=== PATIENT | female | born 1985 | race African-American/Black ===

== ENCOUNTER 2017-01-16 17:20 | Emergency (ER) | payer MEDICAID, OTHER ==
[~2017-01-16] VITALS: Ht 165.1 cm; Wt 132.3 kg
[~2017-01-16 17:20] MED LIST: AMOX875 PO; NAPR40TA PO
[2017-01-16 17:31] VITALS: BP 132/95; PULSE 98; RESP 16; TEMP 99; O2SAT 100
--- NOTE | 2017-01-16 17:49 | PD ---
HPI Chief Complaint: Skin Problem Time Seen by Provider: 17:45 Travel History International Travel<30 days: No Contact w/Intl Traveler<30days: No Traveled to known affect area: No History of Present Illness HPI 31-year-old Afro-[place] female presents to emergency Department with increasing swollen, raised, indurated, tender lesion to the upper middle back at the base of the neck. Patient denies history of MRSA, but had a similar lesion to this area several years ago which drained on its own. She states it' s been getting worse over the past week. Pain is currently 9 out of 10. There is no fever, chills, or other symptoms. It is not currently spontaneously draining, but pain and swelling is worse in the past 24 hours. She has no other complaints. She has no known drug allergies. PFSH Past Medical History Anemia: Yes (HAS RECEIVED IRON INJECTIONS IN THE PAST) Diminished Hearing: No Reproductive: Yes (H/O OVARIAN CYSTS) ?: Not LMP: YESTERDAY Past Surgical History Section: Yes Social History Alcohol Use: No Tobacco Use: Yes (3 TIMES A WEEK) Substance Use: No Allergies-Medications (Allergen,Severity, Reaction): Coded Allergies: No Known Allergies (Verified , 02/01/16) Reported Meds & Prescriptions Reported Meds & Active Scripts Active Ibuprofen 600 Mg Tab 600 Mg PO Q6H PRN Bactrim DS (Sulfamethoxazole-Trimethoprim) 800-160 Mg Tab 1 Tab PO BID Non-Aspirin Pain Relief ES (Acetaminophen) 500 Mg Tab 1,000 Mg PO Q6HR PRN Review of Systems Except as stated in HPI: all other systems reviewed are Neg General / Constitutional: No: Fever Eyes: No: Visual changes HENT: No: Headaches Cardiovascular: No: Chest Pain or Discomfort Respiratory: No: Shortness of Breath Gastrointestinal: No: Abdominal Pain Genitourinary: No: Dysuria Musculoskeletal: No: Pain Skin: Positive Lesions, No Rash Neurologic: No: Weakness Psychiatric: No: Depression Endocrine: No: Polydipsia Hematologic/Lymphatic: No: Easy Bruising Physical Exam Narrative GENERAL: Obese female in moderate distress. SKIN: Warm and dry. Normal color. Normal turgor. There is a large 3 cm diameter by 2 cm raised lesion to the posterior base of the neck consistent with either sebaceous cyst or abscess with pointing. There is localized erythema surrounding it. There is no spontaneous drainage noted. HEAD: Atraumatic. Normocephalic. EYES: Pupils equal and round. No scleral icterus. No injection or drainage. ENT: No nasal bleeding or discharge. Mucous membranes pink and moist. Pharynx is clear. Airway is patent. NECK: Trachea midline. Supple without significant lymphadenopathy noted. CARDIOVASCULAR: Regular rate and rhythm. RESPIRATORY: No accessory muscle use. Clear to auscultation. Breath sounds equal bilaterally. MUSCULOSKELETAL: Extremities without clubbing, cyanosis, or edema. No obvious deformities. NEUROLOGICAL: Awake and alert. No obvious cranial nerve deficits. Motor grossly within normal limits. Five out of 5 muscle strength in the arms and legs. Normal speech. PSYCHIATRIC: Appropriate mood and affect; insight and judgment normal. Data Data Last Documented VS Vital Signs Date Time Temp Pulse Resp B/P Pulse Ox O2 Delivery O2 Flow Rate FiO2 01/16/17 17:31 99.0 98 16 132/95 100 Orders Lidocai-Epi 1%-1:100,000 Inj (Xylocaine- (01/16/17 18:00) Sulfamet-Trimeth Ds 800-160 Mg (Bactrim (01/16/17 18:00) Abscess Culture And Gram Stain (01/16/17 17:49) [facility] Medical Decision Making Medical Screen Exam Complete: Yes Emergency Medical Condition: Yes Differential Diagnosis Sebaceous cyst. Abscess. Cellulitis. MRSA. Narrative Course Patient is uncomfortable but medically stable at time of exam. I&D of abscess is performed, and culture obtained. See procedure note. Patient is given Bactrim DS by mouth 1. Patient will continue on Bactrim DS twice a day 7 days. Patient is given ibuprofen 600 mg 4 times a day #40. Patient is given acetaminophen 500 mg 2 tabs every 6 hours #60. Wound instructions are reviewed with the patient. Packing is to be maintained for the next 2 days. Patient can return sooner if worsening symptoms develop. Patient to return in 2 days for packing removal and wound recheck. Procedures Procedure Narrative After the risks and benefits were discussed the following procedure was performed: INCISION AND DRAINAGE OF ABSCESS: The area was prepped and was sterilely draped. A subcutaneous wheal of 1 % Xylocaine with epi with a total number 3 mL was used to anesthetize the area. The area was properly anesthetized. A number 11 scalpel was used to make a 1-cm incision across the area of the abscess. Large amount of purulent odorous drainage was expressed. Cultures were obtained. The abscess was drained an irrigated with normal saline. Quarter inch iodoform packing was placed in the wound. Sterile dressing applied. Patient advised to have packing removed in two days. Diagnosis Primary Impression: Abscess Patient Instructions: Abscess Incision and Drainage (ED), General Instructions Additional Instructions: I&D of abscess is performed, and culture obtained. Patient is given Bactrim DS by mouth 1. Patient will continue on Bactrim DS twice a day 7 days. Patient is given ibuprofen 600 mg 4 times a day #40. Patient is given acetaminophen 500 mg 2 tabs every 6 hours #60. Wound instructions are reviewed with the patient. Packing is to be maintained for the next 2 days. Patient can return sooner if worsening symptoms develop. Patient to return in 2 days for packing removal and wound recheck. Med/Other Pt SpecificInfo: Prescription(s) given, Wound Care Scripts Ibuprofen 600 Mg Qng428 Mg PO Q6H PRN (Pain/Inflammation) #40 TAB Prov:Francis Pickett MD 01/16/17 Sulfamethoxazole-Trimethoprim (Bactrim DS)800-160 Mg Tab1 Tab PO BID #14 TAB Prov:Francis Pickett MD 01/16/17 Acetaminophen (Non-Aspirin Pain Relief ES)500 Mg Tab1,000 Mg PO Q6HR PRN (PAIN) #60 TAB Prov:Francis Pickett MD 01/16/17 Disposition: 01 DISCHARGE HOME Condition: Stable Addy Eden Jan 16, 2017 17:49
[2017-01-16] MEDS ORDERED: SULFAMETHOXAZOLE-TRIMETHOPRIM DS 800-160 MG TAB PO ONE (18:00)
[2017-01-16] MEDS ORDERED: LIDOCAINE 1%/EPINEPHrine 1:100,000 SOLN 20 ML VIAL INFIL ONE (18:00)
[2017-01-16] MEDS ORDERED: BACT800T5 PO (18:47)
[2017-01-16] MEDS ORDERED: IBUP-232 PO (18:47)
[2017-01-16] MEDS ORDERED: NON-500T13 PO (18:47)
== END 2017-01-16 19:00 | disposition home or self-care (01) ==
LOC: PHEFT 17:20
DX: L02.11 Cutaneous abscess of neck (principal); B96.4 Proteus (mirabilis) (morganii) as the cause of diseases classified elsewhere; Z72.0 Tobacco use; Z86.2 Personal history of diseases of the blood and blood-forming organs and certain disorders involving the immune mechanism; Z87.42 Personal history of other diseases of the female genital tract
CPT/HCPCS: 10061; 87070; 87077; 87186; 87205

== ENCOUNTER 2017-01-20 18:18 | Emergency (ER) | payer OTHER ==
[~2017-01-20] VITALS: Ht 165.1 cm; Wt 132.7 kg
[~2017-01-20 18:18] MED LIST changes: -AMOX875 PO; +BACT800T5 PO; +IBUP-232 PO; -NAPR40TA PO; +NON-500T13 PO
[2017-01-20 18:26] VITALS: BP 196/114; PULSE 76; RESP 18; TEMP 97.7; O2SAT 99
--- NOTE | 2017-01-20 18:42 | PD ---
HPI Chief Complaint: Skin Problem Time Seen by Provider: 18:20 Travel History International Travel<30 days: No Contact w/Intl Traveler<30days: No Traveled to known affect area: No History of Present Illness HPI 31-year-old female here for abscess packing removal and wound recheck. She was seen on 01/16/17 and had an incision and drainage of an abscess on the posterior aspect of her neck. She denies fever, chills, increased pain. She has no current complaint. She is taking the antibiotics as prescribed. PFSH Past Medical History Anemia: Yes (HAS RECEIVED IRON INJECTIONS IN THE PAST) Diminished Hearing: No Reproductive: Yes (H/O OVARIAN CYSTS) Immunizations Current: No ?: Not Past Surgical History Surgical History: No Previous Surgery Section: Yes Social History Alcohol Use: No Tobacco Use: No Substance Use: No Allergies-Medications (Allergen,Severity, Reaction): Coded Allergies: No Known Allergies (Verified , 01/20/17) Reported Meds & Prescriptions Reported Meds & Active Scripts Active Bactrim DS (Sulfamethoxazole-Trimethoprim) 800-160 Mg Tab 1 Tab PO BID Review of Systems Except as stated in HPI: all other systems reviewed are Neg General / Constitutional: No: Fever Eyes: No: Visual changes HENT: No: Headaches Cardiovascular: No: Chest Pain or Discomfort Physical Exam Narrative GENERAL: Well-nourished, well-developed patient. SKIN: Focused skin assessment warm/dry. Healing abscess posterior aspect of the neck with small amount of purulent drainage and packing present. No surrounding cellulitis or induration HEAD: Normocephalic. EYES: No scleral icterus. No injection or drainage. NECK: Supple, trachea midline. No JVD or lymphadenopathy. No cervical midline tenderness. No meningismus CARDIOVASCULAR: Regular rate and rhythm without murmurs, gallops, or rubs. RESPIRATORY: Breath sounds equal bilaterally. No accessory muscle use. Data Data Last Documented VS Vital Signs Date Time Temp Pulse Resp B/P Pulse Ox O2 Delivery O2 Flow Rate FiO2 01/20/17 18:26 97.7 76 18 196/114 99 MDM Medical Decision Making Medical Screen Exam Complete: Yes Emergency Medical Condition: Yes Differential Diagnosis Abscess wound recheck, packing removal, clinically ruled out cellulitis Narrative Course 31-year-old female here for abscess recheck and packing removal. Packing was removed from the posterior aspect of the neck. Abscess appears to be healing there is no surrounding cellulitis or induration. Patient was instructed to continue current antibiotics wound care discussed and follow-up the primary care doctor. She agrees to plan Diagnosis Primary Impression: Abscess packing removal Referrals: Primary Care Physician Additional Instructions: Cleansed the area daily and apply a new clean dressing. Take the antibiotics as prescribed. Follow-up the primary care doctor for recheck. Return to the emergency department if he develops increasing pain, fever, increased drainage from the site. Disposition: 01 DISCHARGE HOME Condition: Stable Theresa Murphy Jan 20, 2017 18:42
== END 2017-01-20 19:25 | disposition home or self-care (01) ==
LOC: PHEFT 18:18
DX: L02.11 Cutaneous abscess of neck (principal); Z48.817 Encounter for surgical aftercare following surgery on the skin and subcutaneous tissue
CPT/HCPCS: 99281

== ENCOUNTER 2017-04-21 07:40 | Emergency (ER) | payer OTHER ==
[~2017-04-21] VITALS: Ht 165.1 cm; Wt 136.0 kg
[~2017-04-21 07:40] MED LIST changes: -IBUP-232 PO; -NON-500T13 PO
[2017-04-21 07:41] VITALS: BP 203/117; PULSE 99; RESP 16; TEMP 98.6; O2SAT 99
[2017-04-21] MEDS ORDERED: IBUP1TAB7 PO (07:52)
[2017-04-21] MEDS ORDERED: AMOX500C PO (07:52)
[2017-04-21] MEDS ORDERED: PERI0.126 SWISH-SPIT (07:53)
[2017-04-21 07:54] VITALS: BP 175/90; PULSE 89; RESP 16; O2SAT 100
--- NOTE | 2017-04-21 07:54 | PD ---
HPI Chief Complaint: Oral / Dental Pain or Problem Time Seen by Provider: 07:51 Travel History International Travel<30 days: No Contact w/Intl Traveler<30days: No Traveled to known affect area: No History of Present Illness HPI 31-year-old female presents to emergency department complaining of right upper dental pain 3 days. Denies dental trauma. Denies fever, vomiting. Denies sore throat or difficulty swallowing. Has been taking ibuprofen for symptom management. Also tried an avwb-ozc-rhootpl tooth filler. Rates pain 10/10. Describes as an aching, stabbing, shooting sensation. No known relieving factors. Constantly aggravated. Patient's blood pressure is elevated in the ear. She denies history of hypertension and does not take high blood pressure medications. Denies chest pain, shortness of breath, headache, change in vision. Has no medical complaints. No known allergies. No other modifying factors or associated signs and symptoms. PFSH Past Medical History Anemia: Yes (HAS RECEIVED IRON INJECTIONS IN THE PAST) Diminished Hearing: No Reproductive: Yes (H/O OVARIAN CYSTS) Immunizations Current: No Past Surgical History Section: Yes Social History Alcohol Use: No Tobacco Use: No Substance Use: No Allergies-Medications (Allergen,Severity, Reaction): Coded Allergies: No Known Allergies (Verified Adverse Reaction, Unknown, 04/21/17) Reported Meds & Prescriptions Reported Meds & Active Scripts Active Peridex Liq (Chlorhexidine Gluconate (Mouth) Liq) 0.12% Soln 15 Ml SWISH-SPIT BID 10 Days Ibuprofen 800 Mg Tab 800 Mg PO Q6HR PRN Amoxicillin 500 Mg Cap 500 Mg PO BID 10 Days Review of Systems Except as stated in HPI: all other systems reviewed are Neg Physical Exam Narrative GENERAL: Well-nourished, well-developed black female patient, in no acute distress; afebrile, nontoxic-appearing SKIN: Warm and dry. HEAD: Atraumatic. Normocephalic. No facial edema, erythema, tenderness on palpation. No lymphadenopathy. EYES: Pupils equal and round. No scleral icterus. No injection or drainage. ENT: Mucosa pink and moist. No erythema or exudates. No uvular edema. No uvular , palatal, or tonsillar deviation. Airway patent. EARS: Bilateral pinnae and external canals appear within normal limits. Bilateral tympanic membranes without erythema, dullness or perforation. MOUTH: Mucous membranes moist, no lesions, tongue and gums appear normal. Tooth #2 with tenderness on palpation; large dental cavity noted. Surrounding gingiva is without erythema, edema, drainage. No obvious abscess noted. NECK: Trachea midline. No lymphadenopathy. CARDIOVASCULAR: Regular rate. RESPIRATORY: No accessory muscle use. GASTROINTESTINAL: Morbidly obese. MUSCULOSKELETAL: No obvious deformities. No clubbing. No cyanosis. No edema. NEUROLOGICAL: Awake and alert. Oriented 3. No obvious cranial nerve deficits. Motor grossly within normal limits. Normal speech. PSYCHIATRIC: Appropriate mood and affect; insight and judgment normal. Data Data Last Documented VS Vital Signs Date Time Temp Pulse Resp B/P (MAP) Pulse Ox O2 Delivery O2 Flow Rate FiO2 04/21/17 07:54 89 16 175/90 (118) 100 04/21/17 07:41 98.6 Orders Orders Ketorolac Inj (Toradol Inj) (04/21/17 08:00) Ed Discharge Order (04/21/17 08:04) [facility] Medical Decision Making Medical Screen Exam Complete: Yes Emergency Medical Condition: Yes Medical Record Reviewed: Yes Differential Diagnosis Dentalgia, dental abscess, infected dental cavity, less likely peritonsillar abscess Narrative Course 31-year-old female with dentalgia and dental cavity to tooth #2. No facial edema or erythema. Patient afebrile and nontoxic-appearing. Denies fever, vomiting. Patient's blood pressure is elevated in the ear. Denies history of hypertension. Patient is asymptomatic. Toradol administered in the ER. Blood pressure rechecked prior to discharge 175/90. Amoxicillin, ibuprofen, Peridex mouth rinse prescribed. Patient provided emergency dental information sheet for follow-up. Instructed patient to follow up with dentist. Instructed patient to follow-up with primary care provider in regards to elevated blood pressure. Instructed patient to follow up with primary care provider. Patient verbalizes understanding and agreement with treatment plan. Patient is medically cleared and stable for discharge. Discussed reasons to return to the emergency department. Patient agrees with treatment plan. The patients vital signs are stable and the patient is stable for outpatient follow-up and treatment. Patient discharged home, stable and in no acute distress. Diagnosis Primary Impression: Dentalgia Additional Impressions: Dental cavities High blood pressure Qualified Codes: I10 - Essential (primary) hypertension Referrals: [facility] Dentist Primary Care Physician Patient Instructions: Dental Abscess (ED), Dental Caries (ED), General Instructions, Hypertension (ED), Toothache (ED) Additional Instructions: Complete full course of antibiotics Ibuprofen or Tylenol as directed and as needed to reduce pain and inflammation Use Peridex as directed for oral hygiene Warm or cool compresses to the affected area Follow-up with dentist Follow-up with primary care provider Return to emergency department immediately with worsening of symptoms Med/Other Pt SpecificInfo: Prescription(s) given Scripts Chlorhexidine Gluconate (Mouth) Liq (Peridex Liq) 0.12% Soln 15 ML SWISH-SPIT BID for 10 Days, #300 ML 0 Refills Prov: Francine Ibarra 04/21/17 Ibuprofen (Ibuprofen) 800 Mg Tab 800 MG PO Q6HR Y for PAIN, #30 TAB 0 Refills Prov: Francine Ibarra 04/21/17 Amoxicillin (Amoxicillin) 500 Mg Cap 500 MG PO BID for Infection for 10 Days, #20 CAP 0 Refills Prov: Francine Ibarra 04/21/17 Disposition: 01 DISCHARGE HOME Condition: Stable Francine Ibarra Apr 21, 2017 07:54
[2017-04-21] MEDS ORDERED: KETOROLAC TROMETHAMINE 60 MG/2 ML (IM) VIAL IM ONE (08:00)
== END 2017-04-21 08:24 | disposition home or self-care (01) ==
LOC: NEPD 07:40
DX: K02.9 Dental caries, unspecified (principal); I10 Essential (primary) hypertension; D64.9 Anemia, unspecified
CPT/HCPCS: 96372; 99284; J1885

== ENCOUNTER 2017-09-03 20:26 | Emergency (ER) | payer BC, OTHER ==
[~2017-09-03] VITALS: Ht 165.1 cm; Wt 138.2 kg
[~2017-09-03 20:26] MED LIST changes: +AMOX500C PO; -BACT800T5 PO; +IBUP1TAB7 PO; +PERI0.126 SWISH-SPIT
[2017-09-03 20:38] VITALS: BP 168/68; PULSE 90; TEMP 98.6; O2SAT 100
[2017-09-03] MEDS ORDERED: ONDANSETRON HCL 4 MG/2 ML VIAL IV PUSH ONE (21:00)
[2017-09-03] MEDS ORDERED: diphenhydrAMINE HCL 50 MG/ML VIAL IV PUSH ONE (21:00)
[2017-09-03] MEDS ORDERED: KETOROLAC TROMETHAMINE 30 MG/ML (IVP) VIAL IV PUSH ONE (21:00)
--- NOTE | 2017-09-03 21:04 | PD ---
HPI Chief Complaint: Hypertension Time Seen by Provider: 20:47 Travel History International Travel<30 days: No Contact w/Intl Traveler<30days: No Traveled to known affect area: No History of Present Illness HPI 32-year-old female complains of headache, photophobia and nausea. Patient states that she has intermittent headache for years. Patient started to have more frequent headache for the past week. Patient states her headache is worse today. Patient states headache is aching headache diffuse over the head. Patient denies any visual change. Patient complains of photophobia. Patient complains of nausea. Patient states that blood pressures elevated today. Patient denies any neck pain. Patient denies any chest pain or shortness of breath. Patient denies abdominal pain. Patient denies any focal weakness or numbness of the extremity. Patient denies any recent head injury. Patient denies any fever chills. Patient has family history of migraine headache. Patient states that she has not had her blood pressure check for years. PFSH Past Medical History Anemia: Yes (HAS RECEIVED IRON INJECTIONS IN THE PAST) Diminished Hearing: No Reproductive: Yes (H/O OVARIAN CYSTS) Immunizations Current: Yes Past Surgical History Section: Yes Gynecologic Surgery: Yes ( ) Social History Alcohol Use: No Tobacco Use: No Substance Use: No Allergies-Medications (Allergen,Severity, Reaction): Coded Allergies: No Known Allergies (Verified Adverse Reaction, Unknown, 09/03/17) Reported Meds & Prescriptions Reported Meds & Active Scripts Active Lisinopril 10 Mg Tab 10 Mg PO DAILY Amlodipine (Amlodipine Besylate) 10 Mg Tab 10 Mg PO DAILY Fioricet (Zszdfjdtcn-Syfbkixjbqlyi-Xupycfyh) 50-300-40 Mg Cap 1-2 Cap PO Q6H PRN Review of Systems General / Constitutional: No: Fever Eyes: Positive: Photophobia, No: Visual changes HENT: Positive: Headaches Cardiovascular: No: Chest Pain or Discomfort Respiratory: No: Shortness of Breath Gastrointestinal: Positive: Nausea, No: Abdominal Pain Genitourinary: No: Dysuria Musculoskeletal: No: Pain Skin: No Rash Neurologic: No: Weakness Psychiatric: No: Depression Endocrine: No: Polydipsia Hematologic/Lymphatic: No: Easy Bruising Physical Exam Narrative GENERAL: Well-nourished, well-developed patient. SKIN: Focused skin assessment warm/dry. HEAD: Normocephalic. EYES: No scleral icterus. No injection or drainage. Pupils 2 mm equal reactive. NECK: Supple, trachea midline. No JVD or lymphadenopathy. CARDIOVASCULAR: Regular rate and rhythm without murmurs, gallops, or rubs. RESPIRATORY: Breath sounds equal bilaterally. No accessory muscle use. GASTROINTESTINAL: Abdomen soft, non-tender, nondistended. MUSCULOSKELETAL: No cyanosis, or edema. BACK: Nontender without obvious deformity. No CVA tenderness. Neurologic exam normal. Data Data Last Documented VS Vital Signs Date Time Temp Pulse Resp B/P (MAP) Pulse Ox O2 Delivery O2 Flow Rate FiO2 09/03/17 23:03 81 18 178/88 (118) 99 Room Air 09/03/17 20:38 98.6 Orders Orders Basic Metabolic Panel (Bmp) (09/03/17 20:54) Ct Brain W/O Iv Contrast(Rout) (09/03/17 20:54) Iv Access Insert/Monitor (09/03/17 20:54) Ketorolac Inj (Toradol Inj) (09/03/17 21:00) Diphenhydramine Inj (Benadryl Inj) (09/03/17 21:00) Ondansetron Inj (Zofran Inj) (09/03/17 21:00) Labetalol Inj (Trandate Inj) (09/03/17 22:00) Labetalol Inj (Trandate Inj) (09/03/17 23:00) Ed Discharge Order (09/03/17 22:58) Labs Laboratory Tests Test 09/03/17 21:15 Blood Urea Nitrogen 9 MG/DL Creatinine 0.70 MG/DL Random Glucose 88 MG/DL Calcium Level 8.7 MG/DL Sodium Level 141 MEQ/L Potassium Level 3.7 MEQ/L Chloride Level 106 MEQ/L Carbon Dioxide Level 29.8 MEQ/L Anion Gap 5 MEQ/L Estimat Glomerular Filtration Rate 117 ML/MIN MDM Medical Decision Making Medical Screen Exam Complete: Yes Emergency Medical Condition: Yes Interpretation(s) 21:[address] scan of the brain shows mucosal thickening paranasal sinuses. BMP within normal limits. Differential Diagnosis Differential diagnosis including migraine headache, tension headache, cluster headache, new onset hypertension. Narrative Course 32-year-old female with headache, diplopia, nausea, elevated blood pressure. Family history of migraine headache. Patient has recurrent headache for years. No workup done in the past. Toradol 30 mg IV. Benadryl 50 mg IV. Zofran 4 mg IV. Labetalol 10 mg IV. Diagnosis Primary Impression: Cephalgia Qualified Codes: R51 - Headache Additional Impressions: Hypertension Qualified Codes: I10 - Essential (primary) hypertension Sinusitis Qualified Codes: J01.00 - Acute maxillary sinusitis, unspecified Patient Instructions: General Instructions Additional Instructions: Take medications as directed. Follow-up of local physician and neurologist. Return if worse. Check blood pressure daily. Do not take medication if blood pressure less than 100. Med/Other Pt SpecificInfo: Prescription(s) given Scripts Amoxicillin-Clavulanate (Augmentin) 875-125 Mg Tab 1 TAB PO BID for Infection, #20 TAB 0 Refills Prov: Duncan Kahn MD 09/03/17 Lisinopril (Lisinopril) 10 Mg Tab 10 MG PO DAILY, #30 TAB 0 Refills Prov: Duncan Kahn MD 09/03/17 Amlodipine (Amlodipine) 10 Mg Tab 10 MG PO DAILY for Blood Pressure Management, #30 TAB 0 Refills Prov: Duncan Kahn MD 09/03/17 Gypstxdcsh-Lcodqocnvsecf-Lfdqqaxb (Fioricet) 50-300-40 Mg Cap 1-2 CAP PO Q6H Y for HEADACHE, #30 CAP 0 Refills Prov: Duncan Kahn MD 09/03/17 Disposition: 01 DISCHARGE HOME Condition: Stable Duncan Kahn MD Sep 03, 2017 21:04
[2017-09-03 21:42] LABS: CALCIUM 8.7 MG/DL (8.5-10.1)
[2017-09-03 21:43] LABS: BICARBONATE 29.8 MEQ/L (21.0-32.0)
[2017-09-03 21:46] LABS: CREATININE 0.7 MG/DL (0.50-1.00)
--- NOTE | 2017-09-03 21:49 | RADRPT ---
EXAM DATE/TIME: 09/03/2017 21:20 [place] COMPARISON: No previous studies available for comparison. INDICATIONS : Cephlagia. RADIATION DOSE: 61.08 CTDIvol (mGy) MEDICAL HISTORY : None SURGICAL HISTORY : None. ENCOUNTER: Initial ACUITY: 1 day PAIN SCALE: 7/10 LOCATION: Bilateral cranial TECHNIQUE: Multiple contiguous axial images were obtained of the head. Using automated exposure control and adj ustment of the mA and/or kV according to patient size, radiation dose was kept as low as reasonably a chievable to obtain optimal diagnostic quality images. DICOM format image data is available electro nically for review and comparison. FINDINGS: CEREBRUM: The ventricles are normal for age. No evidence of midline shift, mass lesion, hemorrhage or acute in farction. No extra-axial fluid collections are seen. POSTERIOR FOSSA: The cerebellum and brainstem are intact. The 4th ventricle is midline. The cerebellopontine angle i s unremarkable. EXTRACRANIAL: The visualized portion of the orbits is intact. SKULL: The calvaria is intact. No evidence of skull fracture. CONCLUSION: 1. No acute intracranial abnormalities. Mucosal thickening in the para nasal sinuses. Stephon Valdovinos MD on September 03, 2017 at 21:45 Board Certified Radiologist. This report was verified electronically.
[2017-09-03] MEDS ORDERED: LABETALOL HCL 100 MG/20 ML VIAL IV PUSH ONE ×2 (22:00→23:00)
[2017-09-03 22:25] VITALS: BP 176/95; PULSE 82; RESP 18; O2SAT 99
[2017-09-03] MEDS ORDERED: LISI10TA3 PO (22:56)
[2017-09-03] MEDS ORDERED: AMLO10TA2 PO (22:56)
[2017-09-03] MEDS ORDERED: BUTA1CAP PO (22:56)
[2017-09-03 23:03] VITALS: BP 178/88; PULSE 81; RESP 18; O2SAT 99
[2017-09-03] MEDS ORDERED: AUGM875T3 PO (23:20)
[2017-09-03 23:29] VITALS: BP 175/86; PULSE 81; RESP 18; O2SAT 99
== END 2017-09-03 23:48 | disposition home or self-care (01) ==
LOC: PHED 20:26
DX: R51 Headache (principal); I10 Essential (primary) hypertension; J01.00 Acute maxillary sinusitis, unspecified
CPT/HCPCS: 70450; 80048; 96374; 96375; 96376; 99285; J1200; J1885; J2405